=== PATIENT | female | born 1945 | race African-American/Black ===

== ENCOUNTER 2018-09-28 17:57 | Emergency (ER) | payer OTHER ==
[~2018-09-28] VITALS: Ht 175.3 cm; Wt 113.4 kg
[~2018-09-28 17:57] MED LIST: ADVAIR HFA115 MCG/21 INH; AMBIEN 5 MG TABL5 M1 PO; ATORVASTATIN CA40 MG PO; BISACODYL SUPP10 MG RECTAL; CARVEDILOL25 MG PO; COZAAR 50 MG TA50 M2 PO; DIFLUCAN100 MG PO; GAS RELIEF 8080 MG PO; GLYCERIN1 EACH RC; HUMALOG100 UNIT/2 SQ; HYDROCODONE-APA1 TA1 PO; KRISTALOSE10 GM PO; LANTUS100 UNIT/M SUBQ; LINZESS290 MCG PO; MEGESTROL ACETA40 MG PO; PAXIL10 MG PO; PLAVIX 75 MG TA75 M1 PO; PROTONIX40 M1 PO; REGLAN 10 MG TA10 MG PO; TRAMADOL 50 MG50 MG PO; ZOFRAN ODT4 MG PO; ZYVOX600 MG PO
[2018-09-28 19:13] LABS: HEMATOCRIT 32.5 % (37.0-47.0); HEMOGLOBIN 10.2 gm/dL (12.0-15.0); MCH 28.7 pg (26.0-34.0); MCHC 31.5 g/dL (28.0-37.0); PLATELET COUNT 122 thou/uL (150-400); RBC 3.57 mil/uL (4.20-5.00); WBC 6.7 thou/uL (4.0-11.0)
[2018-09-28 19:26] LABS: ANION GAP 8 mmol/L (7-16); BUN 30 mg/dL (7-18); CALCIUM 8.9 mg/dL (8.5-10.1); CHLORIDE 96 mmol/L (98-107); CO2 30 mmol/L (21-32); CREATININE 5.1 mg/dL (0.6-1.0); GLUCOSE 183 mg/dL (74-106); SODIUM 134 mmol/L (136-145)
[2018-09-28 19:35] LABS: TROPONIN-I <0.06 ng/mL (<0.06)
[2018-09-28 19:49] LABS: ABSOLUTE NEUTROPHILS 3.1 thou/uL (1.4-8.2)
[2018-09-28 19:50] LABS: ANISOCYTOSIS 1+
[2018-09-28 22:15] VITALS: BP 134/51
--- NOTE | 2018-09-29 09:50 | EKG ---
[place] [address] [address] [place] [address] ELECTROCARDIOGRAM REPORT Name: LON ALLEN Room #: [facility]#: [id number] ������������������ Admission: 09/28/18 ������������������ Attend Phys: Discharge: 09/28/18 ������������������ Date of : 49 Report #: [id number] ����������������������������������������������������������������� [id number] THIS REPORT FOR: //name// [facility] ED Test Date: 2018-09-28 Test Time: 18:17:57 Pat Name: LON ALLEN Department: Room: Gender: F Director Stars: Aishwarya Marie : 1945 Requested By: Berry Goff Order Number: [id number] MD: Jt Knutson Measurements Intervals Kerrick Rate: 61 P: -42 KS: 226 QRS: -9 QRSD: 94 T: 126 QT: 459 QTc: 463 Interpretive Statements Sinus rhythm Prolonged KS interval 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
== END 2018-09-28 22:15 ==
LOC: ER 17:57
PROVIDERS: Emergency Medicine
DX: J44.1 Chronic obstructive pulmonary disease with (acute) exacerbation (principal); I10 Essential (primary) hypertension; G47.30 Sleep apnea, unspecified; E11.9 Type 2 diabetes mellitus without complications; K58.9 Irritable bowel syndrome, unspecified; E78.00 Pure hypercholesterolemia, unspecified; K21.9 Gastro-esophageal reflux disease without esophagitis; F32.9 Major depressive disorder, single episode, unspecified; Z91.040 Latex allergy status; Z88.6 Allergy status to analgesic agent; Z88.5 Allergy status to narcotic agent; Z88.2 Allergy status to sulfonamides; Z79.4 Long term (current) use of insulin